=== PATIENT | male | born 1990 | race Caucasian/White ===

== ENCOUNTER 2017-02-28 18:12 | Emergency (ER) | payer BC, OTHER ==
[~2017-02-28] VITALS: Ht 177.8 cm; Wt 63.0 kg
[2017-02-28 18:33] VITALS: Ht 177.8 cm; Wt 63.0 kg
[2017-02-28] MEDS ORDERED: KETOROLAC 15 MG INJ IM STA (20:17)
[2017-02-28] MEDS ORDERED: DIAZEPAM 5 MG TAB PO ONE (20:30)
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
[2017-02-28] MEDS ORDERED: NAPR-260 PO (21:04)
[2017-02-28] MEDS ORDERED: DIAZ-90 PO (21:05)
== END 2017-02-28 21:13 | disposition home or self-care (01) ==
LOC: FTE 18:12
DX: S13.9XXA Sprain of joints and ligaments of unspecified parts of neck, initial encounter (principal); S39.92XA Unspecified injury of lower back, initial encounter; F17.210 Nicotine dependence, cigarettes, uncomplicated; V43.52XA Car driver injured in collision with other type car in traffic accident, initial encounter
CPT/HCPCS: 96372; 99284; J1885

== ENCOUNTER 2017-03-06 21:34 | Emergency (ER) | payer BC, OTHER ==
[~2017-03-06] VITALS: Ht 177.8 cm; Wt 64.0 kg
[~2017-03-06 21:34] MED LIST: DIAZ-90 PO; NAPR-260 PO
[2017-03-06 21:59] VITALS: Ht 177.8 cm; Wt 64.0 kg
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
[2017-03-06 23:28] LABS: ADD SCAN DIFF NO
[2017-03-06 23:35] LABS: BASOPHILS % 0.6 % (0.0-2.0); EOSINOPHILS # 0.2 10^3/ul (0.0-0.5); EOSINOPHILS % 3.4 % (0.0-7.0); HEMATOCRIT 44.9 % (42.0-52.0); LYMPHOCYTES # 2.5 10^3/ul (0.8-2.9); LYMPHOCYTES % 36.6 % (15.0-51.0); MEAN CORPUSCULAR HEMOGLOBIN 31.2 pg (29.0-33.0); MEAN CORPUSCULAR HGB CONC 33.4 g/dl (32.0-37.0); MEAN CORPUSCULAR VOLUME 93.3 fl (82.0-101.0); MEAN PLATELET VOLUME 10.5 fl (7.4-10.4); MONOCYTE # 0.7 10^3/ul (0.3-0.9); MONOCYTES % 10.1 % (0.0-11.0); NEUTROPHIL # 3.4 10^3/ul (1.6-7.5); PLATELET COUNT 212 10^3/UL (140-415); RED BLOOD COUNT 4.81 10^6/ul (4.70-6.10); RED CELL DISTRIBUTION WIDTH 13.2 % (11.5-14.5); WHITE BLOOD COUNT 6.9 10^3/ul (4.8-10.8)
[2017-03-06] MEDS ORDERED: IBUP400T22 PO (23:40)
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
[2017-03-07 00:04] LABS: CREATININE 0.82 mg/dl (0.61-1.24); POTASSIUM 3.9 mmol/L (3.5-5.1)
[2017-03-07 01:00] VITALS: BP 138/76; PULSE 65; RESP 20; TEMP 98.5
== END 2017-03-07 01:01 | disposition home or self-care (01) ==
LOC: FTE 21:34
DX: S19.9XXA Unspecified injury of neck, initial encounter (principal); F17.210 Nicotine dependence, cigarettes, uncomplicated; V89.2XXA Person injured in unspecified motor-vehicle accident, traffic, initial encounter
CPT/HCPCS: 36415; 72125; 80048; 85025